=== PATIENT | female | born 1970 | race Caucasian/White ===

== ENCOUNTER 2018-12-20 21:13 | Emergency (ER) | payer BC, OTHER ==
[~2018-12-20 21:13] MED LIST: CETI10TA86 PO; FLUTICASON
[2018-12-20] MEDS ORDERED: FLUORESCEIN SODIUM 1 STRIP STRIP ONE (21:23)
[2018-12-20] MEDS ORDERED: TETRACAINE HCL 0.5% 4 ML OPHTH SOLN ONE (21:23)
[2018-12-20] MEDS ORDERED: NA BORATE/BORIC AC/H2O/NACL 120 ML OPHTH IRRIG SOLN ONE (21:24)
[2018-12-20] MEDS ORDERED: ERYTHROMYCIN BASE 0.5% OPHTH OINT 1 GM TUBE ONE (21:46)
== END 2018-12-20 22:01 | disposition home or self-care (01) ==
LOC: EDH 21:13
DX: S05.01XA Injury of conjunctiva and corneal abrasion without foreign body, right eye, initial encounter (principal); X58.XXXA Exposure to other specified factors, initial encounter; Y93.89 Activity, other specified; Y92.89 Other specified places as the place of occurrence of the external cause; Y99.8 Other external cause status